=== PATIENT | male | born 2000 | race Two or more races ===

== ENCOUNTER 2022-11-16 17:44 | Emergency (ER) | payer SELFPAY ==
[~2022-11-16] VITALS: Ht 172.7 cm; Wt 61.5 kg
[2022-11-16 18:42] VITALS: PULSE 70; RESP 26; O2SAT 97
[2022-11-16 18:48] LABS: Hematocrit 42.8 % (41.0-53.0); Hemoglobin 14.8 g/dL (13.5-17.5); Mean Corpuscular Hemoglobin 29.4 pg (28.0-32.0); Mean Corpuscular Hgb Conc. 34.7 g/dL (32.0-36.0); Mean Corpuscular Volume 84.8 fL (80.0-100.0); Red Blood Cells 5.05 10^6/uL (4.5-5.90); Red Cell Distribution Width 12.7 % (11.8-14.3); White Blood Cell 7.7 10^3/uL (4.4-10.8)
[2022-11-16 19:01] LABS: Basophils % (manual) 0 (0.0-2.0); Blast Cells 0; Myelocytes % 0; Reactive Lymphocytes 0
[2022-11-16] MEDS ORDERED: IOHEXOL 300 MG/ML 100ML BOTTLE IJ ONE (19:02)
[2022-11-16 19:08] LABS: INR 1.13 (0.9-1.15); Partial Thromboplastin Time < 20.0 SEC (24.5-34.5); Prothrombin Time 11.8 sec (9.3-11.8)
[2022-11-16 19:24] LABS: Albumin 4.8 g/dL (3.4-5.0); Calcium 9.2 mg/dL (8.5-10.1); Magnesium 2.2 mg/dL (1.6-2.6); Potassium 3.5 mmol/L (3.5-5.1)
[2022-11-16 19:32] LABS: Bilirubin, Total 0.5 mg/dL (0.2-1.0); Total Protein 7.8 g/dL (6.4-8.2)
[2022-11-16 19:33] LABS: Band Neutrophils % (manual) 3; Eosinophils % (manual) 1 (0-7); Lymphocytes % (manual) 9 (10.0-50.0); Metamyelocytes % 1; Monocytes % (manual) 2 (0-12); Promyelocytes % 1
[2022-11-16 19:34] LABS: Platelet Estimate Adequate
[2022-11-16 19:45] VITALS: PULSE 76; RESP 23; O2SAT 95
[2022-11-16] MEDS ORDERED: ceFAZolin 1GM/50ML 50 ML IV ONE (20:00)
[2022-11-16] MEDS ORDERED: SODIUM CHLORIDE 0.9% 1,000 ML IV ONE (20:00)
[2022-11-16] MEDS ORDERED: TETANUS-DIPTH-ACEL PERTUSSIS 0.5ML SYR Tdap IM ONE (20:00)
[2022-11-16 22:00] VITALS: BP 125/69; PULSE 72; RESP 13; TEMP 98.7; O2SAT 100
[2022-11-16 22:22] LABS: Amphetamine Screen, Urine NEGATIVE (NEGATIVE); Barbiturate Scree,Urine NEGATIVE (NEGATIVE); Benzodiazephine Screen, Urine NEGATIVE (NEGATIVE); Cannabinoid Screen, Urine POSITIVE (NEGATIVE); Cocaine Screen, Urine NEGATIVE (NEGATIVE); Phencyclidine Screen, Urine NEGATIVE (NEGATIVE)
[2022-11-16 22:29] LABS: Opiate Scree,Urine NEGATIVE (NEGATIVE); Urine Bacteria NONE SEEN /hpf (None Seen); Urine WBC <1 /hpf (0 - 3)
[2022-11-16 22:39] LABS: Urine Blood Negative /uL (Negative); Urine Clarity CLEAR (Clear); Urine Color Straw (Yellow); Urine Protein, UAD Trace (Negative); Urine Urobilinogen Normal (Negative); Urine pH 7 (5.0-8.0)
== END 2022-11-16 19:51 | disposition short-term general hospital (02) ==
LOC: ER 17:48
DX: S62.291B Other fracture of first metacarpal bone, right hand, initial encounter for open fracture (principal); T23.201A Burn of second degree of right hand, unspecified site, initial encounter; F10.129 Alcohol abuse with intoxication, unspecified; Z79.899 Other long term (current) drug therapy; V86.59XA Driver of other special all-terrain or other off-road motor vehicle injured in nontraffic accident, initial encounter; Y93.I9 Activity, other involving external motion; Y92.89 Other specified places as the place of occurrence of the external cause; Y99.8 Other external cause status; Y90.0 Blood alcohol level of less than 20 mg/100 ml
CPT/HCPCS: 16020; 36415; 70450; 71260; 72125; 73110; 73130; 74177; 80053; 80307; 80320; 81001; 83735; 85007; 85027; 85610; 85730; 90471; 90715; 96365; 99285; J0690; Q9967